=== PATIENT | male | born 1975 | race Caucasian/White ===

== ENCOUNTER 2016-09-02 16:12 | Emergency (ER) | payer OTHER ==
[2016-09-02 16:20] VITALS: BP 138/98
--- NOTE | 2016-09-02 16:32 | UC ---
Skin Complaint HPI - HPI Summary HPI Summary: Patient states he developed sudden severe pain in a hemorrhoid on Friday. Sitting and attempting to strain for a BM increases the pain. Denies fever like symptoms. - History of Current Complaint Chief Complaint: UCGeneralIllness Time Seen by Provider: 09/02/16 16:26 Stated Complaint: HEMORRHOIDS Hx Obtained From: Patient Onset/Duration: Sudden Onset Skin Exposure Onset/Duration: Days Ago - 2 days ago Onset Severity: Severe Current Severity: Severe Pain Intensity: 9 Pain Scale Used: 0-10 Numeric Location: Discrete Aggravating: Other - Sitting Alleviating: Nothing Associated Signs & Symptoms: Negative: Nausea, Vomiting, Fever, Chills, Abdominal Pain - Allergy/Home Medications Allergies/Adverse Reactions: Allergies Allergy/AdvReac Type Severity Reaction Status Date / Time No Known Allergies Allergy Verified 09/02/16 16:20 Review of Systems Constitutional: Negative Skin: Other - Hemorrhoids Eyes: Negative ENT: Negative Respiratory: Negative Cardiovascular: Negative Gastrointestinal: Negative Genitourinary: Negative Motor: Negative Neurovascular: Negative Musculoskeletal: Negative Neurological: Negative Psychological: Negative All Other Systems Reviewed And Are Negative: Yes PMH/Surg Hx/FS Hx/Imm Hx Previously Healthy: Yes Endocrine History Of: Denies: Diabetes, Thyroid Disease Cardiovascular History Of: Denies: Cardiac Disorders, Hypertension Respiratory History Of: Denies: COPD, Asthma GI/ History Of: Denies: Ulcer Neurological History Of: Denies: TIA, CVA, Seizures, Migraine Psychological History Of: Denies: Anxiety, Depression, Bipolar Disorder Cancer History Of: Denies: Lung Cancer - Surgical History Surgical History: Yes Surgery Procedure, Year, and Place: Bilateral inguinal hernia repair with mesh. - Family History Known Family History: Positive: Other - Mother Lung CA Father Brain CA 2001 - Social History Occupation: Employed Full-time Lives: With Family Alcohol Use: None Substance Use Type: None Smoking Status (MU): Never Smoked Tobacco Type: Smokeless Tobacco Amount Used/How Often: 1 can/week Length of Time of Smoking/Using Tobacco: 12 years Have You Smoked in the Last Year: No Cessation Counseling: Patient Advised to Stop Physical Exam Triage Information Reviewed: Yes Appearance: Pain Distress Vital Signs: Initial Vital Signs Temp 98.2 F 09/02/16 16:17 Pulse 87 09/02/16 16:17 Resp 16 09/02/16 16:17 BP 138/98 09/02/16 16:17 Vital Signs Reviewed: Yes Eye Exam: Normal Eyes: Positive: Conjunctiva Clear ENT: Positive: Normal ENT inspection, Hearing grossly normal, Pharynx normal, TMs normal Dental Exam: Normal Neck: Positive: Supple Respiratory: Positive: Chest non-tender, Lungs clear, Normal breath sounds Cardiovascular: Positive: RRR, No Murmur, Pulses Normal Abdomen Description: Positive: Nontender, No Organomegaly, Soft Bowel Sounds: Positive: Hypoactive Musculoskeletal Exam: Normal Musculoskeletal: Positive: Strength Intact, ROM Intact Neurological Exam: Normal Neurological: Positive: Alert, Muscle Tone Normal Psychological Exam: Normal Skin Exam: Other - External thrombosed hemorrhoid measuring less than 3 cm Re-Evaluation - Re-Evaluation First Eval Re-Evaluation Time: 17:08 Change: Improved Course/Dx - Diagnoses Provider Diagnoses: Hemorrhoids. Thrombosed hemorrhoid. Thrombosed hemorrhoid I&D Procedures - Incision and Drainage Site: anal hemorrhoid Anesthesia: Topical Instrument(s): Scalpel - Patient tolerated procedure well, moderate clot removed Discharge - Discharge Plan Condition: Stable Disposition: HOME Patient Education Materials: Hemorrhoids (ED) Referrals: Balbir Mead MD [Primary Care Provider] - Additional Instructions: Your hemorrhoid developed a clot which has made it painful. Will attempt to remove the clot
[2016-09-02] MEDS ORDERED: Lidocaine 4% TOPICAL* 50 ML TOP.SOLN TOPICAL ONE (16:42)
== END 2016-09-02 17:10 | disposition home or self-care (01) ==
LOC: UCEAST 16:12
DX: K64.5 Perianal venous thrombosis (principal); F17.220 Nicotine dependence, chewing tobacco, uncomplicated
CPT/HCPCS: 10140; 99212; G0463

== ENCOUNTER 2016-11-01 16:36 | Emergency (ER) | payer OTHER ==
[2016-11-01 18:17] VITALS: BP 112/69
[2016-11-01] MEDS ORDERED: Ondansetron ODT TAB* 4 MG PO ONE (18:48)
[2016-11-01] MEDS ORDERED: Ketorolac INJ* 60 MG/2 ML VIAL IM ONE (18:54)
--- NOTE | 2016-11-01 20:08 | UC ---
UC General HPI - HPI Summary HPI Summary: 11AM BEGAN TO FEEL CHILLS AND HAD NAUSEA AND VOMITING. NO ABDOMINAL PAIN. NO COUGH. NO SORE THROAT. ONLY MILD FEVER, NAUSEA, AND MUSCLE ACHES/CHILLS. - History of Current Complaint Chief Complaint: UCGeneralIllness Stated Complaint: FLU SYMPTOMS Time Seen by Provider: 11/01/16 18:13 Hx Obtained From: Patient, Family/Extension Course Counselor Onset/Duration: Sudden Onset, Lasting Hours, Still Present Onset Severity: Moderate Current Severity: Moderate Associated Signs & Symptoms: Positive: Fever, Nausea, Vomiting, Other - MUSCLE ACHES CHILLS - Allergy/Home Medications Allergies/Adverse Reactions: Allergies Allergy/AdvReac Type Severity Reaction Status Date / Time No Known Allergies Allergy Verified 09/02/16 16:20 Home Medications: Home Medications Fenofibrate(NF) 1 DAILY 11/01/16 [History] PMH/Surg Hx/FS Hx/Imm Hx Previously Healthy: Yes Endocrine History Of: Denies: Diabetes, Thyroid Disease Cardiovascular History Of: Denies: Cardiac Disorders, Hypertension Respiratory History Of: Denies: COPD, Asthma GI/ History Of: Denies: Ulcer Neurological History Of: Denies: TIA, CVA, Seizures, Migraine Psychological History Of: Denies: Anxiety, Depression, Bipolar Disorder Cancer History Of: Denies: Lung Cancer - Surgical History Surgical History: Yes Surgery Procedure, Year, and Place: Bilateral inguinal hernia repair with mesh. - Family History Known Family History: Positive: Other - Mother Lung CA Father Brain CA 2002 - Social History Occupation: Employed Full-time Lives: With Family Alcohol Use: Rare Substance Use Type: None Smoking Status (MU): Never Smoked Tobacco Type: Smokeless Tobacco Amount Used/How Often: 1 can/week Length of Time of Smoking/Using Tobacco: 12 years Have You Smoked in the Last Year: No Cessation Counseling: Patient Advised to Stop Review of Systems Constitutional: Fever, Chills Skin: Negative Eyes: Negative ENT: Negative Respiratory: Negative Cardiovascular: Negative Gastrointestinal: Vomiting Genitourinary: Negative Motor: Negative Neurovascular: Negative Musculoskeletal: Myalgia Neurological: Negative Psychological: Negative All Other Systems Reviewed And Are Negative: Yes Physical Exam Triage Information Reviewed: Yes Appearance: Well-Appearing, Well-Nourished, Ill-Appearing Vital Signs: Initial Vital Signs Temp 100.1 F 11/01/16 18:11 Pulse 94 11/01/16 18:11 Resp 16 11/01/16 18:11 BP 112/69 11/01/16 18:11 Pulse Ox 99 11/01/16 18:11 Vital Signs Reviewed: Yes Eye Exam: Normal ENT Exam: Normal ENT: Positive: Hearing grossly normal, Pharynx normal, TMs normal Dental Exam: Normal Neck exam: Normal Neck: Positive: Supple, Nontender, No Lymphadenopathy Respiratory Exam: Normal Respiratory: Positive: Chest non-tender, Lungs clear, Normal breath sounds, No respiratory distress, No accessory muscle use Cardiovascular Exam: Normal Cardiovascular: Positive: RRR, No Murmur, Pulses Normal, Brisk Capillary Refill Abdominal Exam: Normal Abdomen Description: Positive: Nontender, No Organomegaly Musculoskeletal Exam: Normal Musculoskeletal: Positive: Strength Intact, ROM Intact, No Edema Neurological Exam: Normal Psychological Exam: Normal Psychological: Positive: Normal Response To Family Skin Exam: Normal Course/Dx - Differential Dx - Multi-Symptom Differential Diagnoses: Other - INFLUENZA Provider Diagnoses: ACUTE NAUSEA AND VOMITING. VIRAL SYNDROME Discharge - Discharge Plan Condition: Stable Disposition: HOME Prescriptions: Ondansetron ODT TAB* [Zofran 4 MG Odt TAB*] 4 mg PO Q8H PRN #9 tab.odt PRN Reason: Vomiting Patient Education Materials: Acute Nausea and Vomiting (ED), Viral Syndrome (ED ) Referrals: Balbir Mead MD [Primary Care Provider] -
== END 2016-11-01 19:35 | disposition home or self-care (01) ==
LOC: UCEAST 16:36
DX: B34.9 Viral infection, unspecified (principal); R11.2 Nausea with vomiting, unspecified; F17.220 Nicotine dependence, chewing tobacco, uncomplicated
CPT/HCPCS: 87502; 96372; 99212; G0463; J1885

== ENCOUNTER → 2016-11-01 18:07 | Emergency (ER) | payer OTHER | END | disposition left against medical advice (07) | LOC: UCEAST 18:07 | DX: B34.9 Viral infection, unspecified (principal); R11.2 Nausea with vomiting, unspecified; F17.290 Nicotine dependence, other tobacco product, uncomplicated ==

== ENCOUNTER 2017-10-27 14:24 | Emergency (ER) | payer OTHER ==
[2017-10-27 14:50] VITALS: BP 140/95
--- NOTE | 2017-10-27 14:53 | UC ---
Upper Extremity HPI - HPI Summary HPI Summary: 42 y/o male presents to the urgent care c/o Left shoulder pain and left side neck pain for the past 10/22/2017. 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 Then he woke up w/ pain. Pain is 8/10 radiating to his left side of neck, specially w/ movement or lifting. Decrease ROM of left shoulder due to pain. He has taking Ibuprofen PO to alleviate symptoms. Pt can't recall any injury to his left shoulder or neck. and denies numbness or tingling sensation over the left arm, SOB, chest pain, abdominal pain, N/V/D. - History of Current Complaint Chief Complaint: UCUpperExtremity Stated Complaint: NECK/LEFT SHOULDER PAIN 4 DAYS Time Seen by Provider: 10/27/17 14:46 Hx Obtained From: Patient Onset/Duration: Gradual Onset, Lasting Days - 6 days, Still Present, Worse Since - 2 days ago Severity Initially: Mild Severity Currently: Moderate Pain Intensity: 8 Pain Scale Used: 0-10 Numeric Location Of Pain: Is Discrete @ - left shoulder, Radiates To - left side of neck Aggravating Factor(s): Movement, Lifting, Abduction Alleviating Factor(s): OTC Meds Associated Signs And Symptoms: Positive: Negative. Negative: Swelling, Redness , Fever, Numbness/Tingling Related History: Dominant Hand Right - Risk Factors Non-Orthopedic Risk Factor: Negative DVT Risk Factors: Negative Septic Arthritis Risk Factor: Negative - Allergies/Home Medications Allergies/Adverse Reactions: Allergies Allergy/AdvReac Type Severity Reaction Status Date / Time No Known Allergies Allergy Verified 10/27/17 14:51 PMH/Surg Hx/FS Hx/Imm Hx Previously Healthy: Yes - Pt denies PMHX - Surgical History Surgical History: Yes Surgery Procedure, Year, and Place: Bilateral inguinal hernia repair with mesh. - Family History Family History: Mother Lung CA Father Brain CA 2001 - Social History Occupation: Employed Full-time Lives: With Family Alcohol Use: Rare Substance Use Type: None Smoking Status (MU): Current Every Day Smoker Type: Smokeless Tobacco Amount Used/How Often: 1 can/week Length of Time of Smoking/Using Tobacco: since age 27 Have You Smoked in the Last Year: No Review of Systems Constitutional: Negative Skin: Negative Eyes: Negative ENT: Negative Respiratory: Negative Cardiovascular: Negative Gastrointestinal: Negative Genitourinary: Negative Motor: Decreased ROM - left shoulder Musculoskeletal: Decreased ROM - left shoulder, Other: - left shoulder pain and left side neck pain Neurological: Negative Psychological: Negative Is Patient Immunocompromised?: No All Other Systems Reviewed And Are Negative: Yes Physical Exam - Summary Physical Exam Summary: Vital Signs Reviewed: Yes General: well developed, well nourished male sitting in the examining table w/o any apparent distress, Eyes: Positive: Conjunctiva Clear - PERRLA, EOMI, fundi grossly normal ENT: Positive: Normal ENT inspection, Hearing grossly normal, Pharynx normal, TMs normal Neck: Positive: Supple, Nontender, No Lymphadenopathy Respiratory: Positive: Chest non-tender, Lungs clear, Normal breath sounds, No respiratory distress Cardiovascular: Positive: RRR, No Murmur, Pulses Normal, Brisk Capillary Refill Abdomen Description: Positive: Nontender, No Organomegaly, Soft. Negative: CVA Tenderness (R), CVA Tenderness (L) Bowel Sounds: Positive: Present Musculoskeletal: Positive: Strength Intact, Other: - RT shoulder: The L shoulder is without obvious asymmetry or deformity when compared to the R shoulder. No surface trauma, ecchymosis, crepitus. No bony deformity or prominence of humeral head. No erythema, warmth. tender to palpation over the clavicle,scapula. and over Acromioclavicular joint w/o any swelling or erythema , no humeral head tenderness, NT to palpation of the bicipital groove . Tenderness to palpation over the left trapezius muscle. NT to sternocleidomastoid, pectoralis, or over biceps/triceps, deltoid, . Limited ROM due to pain. "empty can and drop arm test unable to perform due to pain. Decrease ROM of neck on lateral bending due to pain s/ mild muscle spasm. No axillary tenderness or lymphadenopathy. Normal sensation over the deltoid and fingers. Distal motor and neurovascular status is intact. Neurological Exam: Normal Psychological Exam: Normal Skin Exam: Normal Triage Information Reviewed: Yes Vital Signs: Initial Vital Signs Temp 98.8 F 10/27/17 14:39 Pulse 93 10/27/17 14:39 Resp 16 10/27/17 14:39 BP 140/95 10/27/17 14:39 Pulse Ox 97 10/27/17 14:39 Upper Extremity Course/Dx - Course Course Of Treatment: 42 y/o male presents to the urgent care c/o Left shoulder pain and left side neck pain for the past 10/22/2017. 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 Then he woke up w/ pain. Pain is 8/10 radiating to his left side of neck, specially w/ movement or lifting. Decrease ROM of left shoulder due to pain. He has taking Ibuprofen PO to alleviate symptoms. Pt can't recall any injury to his left shoulder or neck. and denies numbness or tingling sensation over the left arm, SOB, chest pain, abdominal pain, N/V/D. Hx obtained. Pt given Naproxen at the clinic for pain. Given by nurse. Pt tolerated well medication and felt better. LF shoulder X- ray ordered: Impression: Negative for fracture or swellling. No acute osseous injury observed. Pt's Rx Naproxen PO, Flexeril PO to alleviate neck spasm. Shoulder immobilized with a shoulder sling for 2-3 days. Advised to f/u with Orthopedic referral if not improvement of symptoms in 1 week. Pt's BP is elevated today advised to decrease salt in diet, monitor BP and f/u with PCP for further management. Pt understood and agreed w/ plan of care. - Differential Dx/Diagnosis Differential Diagnosis/HQI/PQRI: Arthritis, Fracture (Closed), Strain, Sprain, Other - tendonitis Provider Diagnoses: 1- Acute left shoulder pain. 2- spasmodic torticollis. 3- Elevated BP w/o Hx of HTN Discharge - Discharge Plan Condition: Stable Disposition: HOME Prescriptions: Cyclobenzaprine TAB* [Flexeril 10 MG TAB*] 10 mg PO TID PRN #15 tab PRN Reason: Spasms - Neck Naproxen Sodium [Naproxen Sodium 500 MG TAB] 500 mg PO BID #30 tab Patient Education Materials: Spasmodic Torticollis (ED), Shoulder Sprain (ED), Low-Sodium Diet (ED) Referrals: Balbir Mead MD [Primary Care Provider] - 1 Week Jennifer Peterson MD [Medical Doctor] - 1 Week Additional Instructions: 1-Please Naproxen PO as directed to alleviate pain and swelling. 2- Take Flexeril PO for your neck spasm. Avoid driving if it causes too much drowsiness. 3-Please apply ice, keep your shoulder immobilized with the shoulder sling for 3 -4 days and then resume movement slowly 4- Please f/u with Orthopedic DR Peterson or your PCP in 1 week is not improvement of symptoms for further evaluation and treatment. 5-Your BP is elevated today. please decrease salt in your diet, monitor BP and if it continues to be elevated please f/u with your PCP for further management
[2017-10-27] MEDS ORDERED: Naproxen TAB* 250 MG PO ONE (15:02)
--- NOTE | 2017-10-27 15:55 | RAD ---
Indication: 1 week LEFT shoulder pain and LEFT side neck pain without known injury. Comparison: No relevant prior exams available on the [facility] [place] PACS for comparison. Technique: Internal rotation AP, external rotation Grashey, scapular Y, axillary views LEFT shoulder Report: Normal acromioclavicular and glenohumeral joint alignment. Negative for fracture. No appreciable acromioclavicular or glenohumeral joint arthropathic change. Negative for calcific tendinopathy or abnormal soft tissue contour. IMPRESSION: Negative radiographic exam of the LEFT shoulder.
== END 2017-10-27 16:19 | disposition home or self-care (01) ==
LOC: UCCORT 14:24
DX: M25.512 Pain in left shoulder (principal); M43.6 Torticollis; X50.0XXA Overexertion from strenuous movement or load, initial encounter; X50.3XXA Overexertion from repetitive movements, initial encounter; Y93.89 Activity, other specified; Y92.9 Unspecified place or not applicable; Y99.0 Civilian activity done for income or pay; R03.0 Elevated blood-pressure reading, without diagnosis of hypertension; F17.220 Nicotine dependence, chewing tobacco, uncomplicated
CPT/HCPCS: 99213; A9270-GY; G0463

== ENCOUNTER 2018-02-07 08:12 | Emergency (ER) | payer OTHER ==
[2018-02-07 08:19] VITALS: BP 137/88
--- NOTE | 2018-02-07 10:39 | UC ---
Pamela Coyne Rebecca, scribed for Alecia Anne DO on 02/07/18 at 0930 . Respiratory Complaint HPI - HPI Summary HPI Summary: Pt is a 42 y/o M who presents to [facility] c/o multiple respiratory symptoms for 1 week, beginning last weekend and gradually worsening since onset. Reports a productive cough, bringing up green sputum, and pleuritic chest pain with breathing and cough. 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 Additionally notes rhinorrhea, sinus congestion, sore throat and diarrhea described as watery. Denies ear pain, N/V, abdominal pain, ALEXANDER, rash, and dysuria. Has been unable to eat, but has been staying hydrated. 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 - Family History Known Family History: Positive: Other - Mother Lung CA Father Brain CA 2001 Family History: Mother Lung CA Father Brain CA 2001 - Social History Occupation: Employed Full-time - Owns a [employer] business Alcohol Use: Occasionally Substance Use Type: None Smoking Status (MU): Current Every Day Smoker Type: Smokeless Tobacco Amount Used/How Often: 1 can/week Length of Time of Smoking/Using Tobacco: since age 27 Have You Smoked in the Last Year: No Review of Systems Constitutional: Negative Skin: Negative Eyes: Negative ENT: Sore Throat, Nasal Discharge, Sinus Congestion Respiratory: Cough Cardiovascular: Other - Pleuritic chest pain (w/ breathing and cough) Gastrointestinal: Diarrhea Genitourinary: Negative Motor: Negative Neurovascular: Negative Musculoskeletal: Negative Neurological: Negative Psychological: Negative All Other Systems Reviewed And Are Negative: Yes - Comments Additional Review of Systems Comments: NEGATIVE: Ear pain, N/V, abdominal pain, ALEXANDER, rash, and dysuria Physical Exam - Summary Physical Exam Summary: Appearance: Well-Appearing, No Pain Distress, Well-Nourished Eyes: conjunctiva clear, no discharge ENT: Sinus congestion, nasal drainage, serous fluid behind an otherwise normal TM on the left, negative tonsillar swelling, negative tonsillar exudate, negative trismus. Neck: Normal, Supple Respiratory/Lung Sounds: Lungs clear, Prolonged expiration on the bilateral bases, No respiratory distress, No accessory muscle use Cardiovascular: RRR, No murmur Musculoskeletal: Normal Neurological: Alert, muscle tone normal Psychiatric:Normal, age appropriate behavior Skin: Normal, Warm, Dry, Normal color Triage Information Reviewed: Yes Vital Signs: Initial Vital Signs Temp 98.5 F 02/07/18 08:17 Pulse 67 02/07/18 08:17 Resp 18 02/07/18 08:17 BP 137/88 02/07/18 08:17 Pulse Ox 97 02/07/18 08:17 Vital Signs Reviewed: Yes ENT: Positive: Nasal congestion, Nasal drainage, Sinus tenderness UC Diagnostic Evaluation - Laboratory O2 Sat by Pulse Oximetry: 97 Respiratory Course/Dx - Course Course Of Treatment: Pt is a 42 y/o M who presents to [facility] c/o productive cough, bringing up green sputum, and pleuritic chest pain with breathing and cough for 1 week with rhinorrhea, sinus congestion, sore throat and diarrhea described as watery. Denies ear pain, N/V, abdominal pain, ALEXANDER, rash, and dysuria. Has been unable to eat, but has been staying hydrated. Pt will be D/C to home with Dx of sinusitis, bronchospasm, and diarrhea with Rx for Tylenol/ Codeine, Ventolin Inhaler, Z-Cisco, Tessalon, and Mucinex. Medications reviewed. - Differential Dx/Diagnosis Provider Diagnoses: Sinusitis, bronchospasm, diarrhea Discharge - Sign-Out/Discharge Documenting (check all that apply): Discharge/Admit/Transfer - Discharge - Discharge Plan Condition: Stable Disposition: HOME Prescriptions: Acetaminop/Codeine 30 MG TAB* [Tylenol/Codeine 30 MG TAB*] 1 tab PO BEDTIME PRN #7 tab MDD 1 tab PRN Reason: Cough Albuterol HFA INHALER* [Ventolin HFA Inhaler*] 2 puff INH Q4H PRN #1 mdi PRN Reason: Sob/Wheezing Azithromycin TAB* [Zithromax TAB (Z-CISCO) 250 mg #6 tabs] 0 mg PO .SEE INSTRUCTIONS #6 tab Benzonatate CAP* [Tessalon 100 MG CAP*] 100 mg PO TID #30 cap guaiFENesin ER TAB [Mucinex*] 600 mg PO BID PRN #1 box PRN Reason: Cough Patient Education Materials: Sinusitis (ED), Bronchospasm (ED), Nutrition Tips for Relief of Diarrhea (ED) Referrals: Balbir Mead MD [Primary Care Provider] - If Needed Additional Instructions: TRY USING THE NETTI POT IN THE MORNINGS DISCUSSED. YOU MUST ALWAYS USE CLEAN WATER. REMEMBER, POSTURE IS AN IMPORTANT FACTOR IN SINUS DRAINAGE. MOVE YOUR NECK, BREATHE. INHALED BRONCHODILATORS: You have received a prescription for an inhaled bronchodilator -- a medication which stimulates the airways in the lung to dilate. This improves the flow of air in asthma, bronchitis, and emphysema. These medicines have some similarity to adrenaline, and can cause similar side effects: shakiness, racing heart, and a sense of nervousness. These side effects decrease with time. Contact your doctor if these side effects are severe. Do not over-use the medicine. Too-frequent use of the inhaler may make it ineffective. Call your doctor if the inhaler is not controlling your symptoms at the prescribed doses. COUGH-SUPPRESSANT & EXPECTORANT MEDICATION: You are to use a cough medication as needed for relief of symptoms. This medicine is a combination of an expectorant (to make the mucous thinner and more easily "coughed up") and a cough suppressant (to reduce the frequency of coughing). The cough-suppressant medicine is related to narcotics. You may experience mild nausea and sleepiness. Some patients who are very sensitive to narcotics may have stomach pain from this medicine. Taking the medicine with food reduces these side effects. Do not drive or work with machinery until you know how this medicine affects you. The expectorant should have no side effects. Iodine-containing expectorants (such as organidin) should not be taken by persons with active thyroid disease unless approved by your doctor. Call the doctor if you develop shortness of breath, hives, rash, itching, lightheadedness, or severe nausea and vomiting. EXPECTORANT MEDICATION: WE SENT IN A SCRIPT FOR MUCINEX SO THAT IT IS EASIER FOR YOU TO PICK THE RIGHT MED AT THE PHARMACY. HOWEVER, YOU CAN ALSO GO TO THE [employer] [facility] AND BUY PLAIN GUAIFENESIN WITHOU BINDERS OR FILLERS. An expectorant medicine has been prescribed. This type of drug makes mucous thinner, helping the sinuses, nose, and bronchial tubes to remain free of pus and mucous. Expectorants make a cough less severe and more comfortable, and help infected sinuses drain. In general, antihistamines defeat the purpose of the expectorant by making mucous thicker. They should be avoided unless specifically recommended by your physician. TESSALON PERLES: You have received a prescription for Tessalon Perles (benzonatate). This is a non-narcotic medicine for relief of cough. It usually works in about 15- 20 minutes and lasts around four hours. Tessalon Perles should be swallowed. They should not be chewed or dissolved in the mouth (this can produce temporary numbing of the mouth and choking can occur). If you develop any adverse effects such as wheezing, shortness of breath, hives, rash, itching, or lightheadedness, please return at once. ANTIBIOTICS ARE NOT CURRENTLY INDICATED FOR YOUR CONDITION. HOWEVER, IF YOUR SYMPTOMS WORSEN OR PERSIST FOR OVER THE NEXT 4-5 DAYS, YOU CAN TAKE THE FOLLOWING MEDICATION: AZITHROMYCIN: Azithromycin (Zithromax) is a broad spectrum antibiotic in the same class as erythromycin. It can treat a variety of bacterial infections, but is most frequently used for respiratory infections. Azithromycin is extremely long-lasting. It accumulates in body tissues and continues to kill bacteria for many days. In order to improve absorption, Azithromycin should be taken at least one hour before or two hours after a meal. It does not have the same strong tendency to upset the stomach as erythromycin and is usually very well tolerated. Patients who have had a rash or other true allergic reactions to erythromycin should not take this medication. Call if you develop gastrointestinal distress, severe diarrhea, rash, hives, itching, or shortness of breath. ANYTIME YOU TAKE AN ANTIBIOTIC, IT IS IMPORTANT TO REPLENISH THE BODY'S SUPPLY OF "GOOD BACTERIA." YOU CAN GET GOOD BACTERIA FROM HIGH QUALITY CULTURED FOODS SUCH LOCAL YOGURT, SOUR KRAUT, SIMEON ELSY, NATURALLY FERMENTED PICKLES AND PROBIOTIC DRINKS. YOU CAN ALSO GET GOOD BACTERIA FROM A PROBIOTIC SUPPLEMENT. - Billing Disposition and Condition Condition: STABLE Disposition: Home The documentation as recorded by the Pamela yin Rebecca accurately reflects the service I personally performed and the decisions made by me, Alecia Anne DO.
== END 2018-02-07 09:54 | disposition home or self-care (01) ==
LOC: UCEAST 08:12
DX: J98.01 Acute bronchospasm (principal); J32.9 Chronic sinusitis, unspecified; R19.7 Diarrhea, unspecified; F17.200 Nicotine dependence, unspecified, uncomplicated
CPT/HCPCS: 99212; G0463

== ENCOUNTER 2019-01-21 12:38 | Emergency (ER) | payer OTHER ==
[2019-01-21 12:48] VITALS: BP 134/90
[2019-01-21] MEDS ORDERED: Albuterol/Ipratropium NEB.SOL* Albuterol 2.5 MG/Ipratropium 0.5 MG 3 ML INH ONE (13:04)
--- NOTE | 2019-01-21 14:05 | ED ---
Respiratory - HPI Summary HPI Summary: Mr. Muhammad started to get a sore throat yesterday. He didn't feel better at all. He woke up in the middle of the night with severe chest pain and shortness of breath. He was also coughing nonproductively. He took some NyQuil and other OTC meds and eventually fell back asleep. When he woke up this morning he continued to feel short of breath although the chest pain was gone. He comes in saying he has a mild sore throat but otherwise just feels awful. The chest pain was retrosternal and described as sharp. He does not recall any exacerbating or relieving factors or other associated symptoms. - History of Current Complaint Chief Complaint: UCRespiratory Stated Complaint: COUGH/SOB Time Seen by Provider: 01/21/19 12:49 Hx Obtained From: Patient, Family/Flight Dynamicist Onset/Duration: Sudden Onset Timing: Constant Initial Severity: Severe Current Severity: Moderate Pain Intensity: 99 Character: Cough (Nonproductive) Sputum Amount: None Aggravating Factor(s): Nothing Alleviating Factor(s): Nothing Associated Signs and Symptoms: Chest Pain - Sore Throat - Allergy/Home Medications Allergies/Adverse Reactions: Allergies Allergy/AdvReac Type Severity Reaction Status Date / Time No Known Allergies Allergy Verified 01/21/19 12:48 PMH/Surg Hx/FS Hx/Imm Hx Previously Healthy: Yes Endocrine/Hematology History: Denies: Hx Diabetes, Hx Thyroid Disease Cardiovascular History: Denies: Hx Hypertension Respiratory History: Denies: Hx Asthma, Hx Chronic Obstructive Pulmonary Disease (COPD), Hx Lung Cancer GI History: Denies: Hx Ulcer Neurological History: Denies: Hx Migraine, Hx Seizures, Hx Transient Ischemic Attacks (TIA) Psychiatric History: Denies: Hx Anxiety, Hx Depression, Hx Bipolar Disorder - Surgical History Surgery Procedure, Year, and Place: Bilateral inguinal hernia repair with mesh. Infectious Disease History: No Infectious Disease History: Denies: Hx Hepatitis, Hx Human Immunodeficiency Virus (HIV), History Other Infectious Disease, Traveled Outside the [place] in Last 30 Days - Family History Known Family History: Positive: Other - Mother Lung CA Father Brain CA 2001 Family History: Mother Lung CA Father Brain CA 2001 - Social History Alcohol Use: Occasionally Substance Use Type: Reports: None Hx Tobacco Use: No Smoking Status (MU): Former Smoker Type: Smokeless Tobacco Amount Used/How Often: 1 can/week Length of Time of Smoking/Using Tobacco: since age 27 Have You Smoked in the Last Year: No Review of Systems Constitutional: Negative Positive: Sore Throat Positive: Chest Pain Positive: Shortness Of Breath All Other Systems Reviewed And Are Negative: Yes Physical Exam - Summary Physical Exam Summary: Mr. Muhammad presented feeling "awful". He complained of shortness of breat especially if he moved around. He was nontoxic in appearance with stable vital signs. His lungs were clear but I gave him a DuoNeb thinking this may be related to some bronchospasm. Ventolin neb did not help him at all and a chest x-ray was unremarkable. I still think this is likely a viral infection however he had significant chest pain still has shortness of breath and I cannot find anything on my clinical exam or testing. An EKG here showed no acute ischemic changes and normal sinus rhythm. I recommended that he go to the emergency department at this time and his is driving him there. Vital Signs On Initial Exam: Initial Vitals Temp Pulse Resp BP Pulse Ox 98.6 F 84 17 134/90 98 01/21/19 12:45 01/21/19 12:45 01/21/19 12:45 01/21/19 12:45 01/21/19 12:45 Diagnostics - Vital Signs Vital Signs Temp Pulse Resp BP Pulse Ox 01/21/19 12:45 98.6 F 84 17 134/90 98 - Laboratory Lab Statement: Any lab studies that have been ordered have been reviewed, and results considered in the medical decision making process. Disposition - Diagnoses Provider Diagnoses: Chest pain, Shortness of breath Discharge - Sign-Out/Discharge Documenting (check all that apply): Patient Departure All imaging exams completed and their final reports reviewed: Yes - Discharge Plan Condition: Stable Disposition: HOME-RECOMMEND TO ED Patient Education Materials: Chest Pain (ED) Referrals: Balbir Mead MD [Primary Care Provider] - Additional Instructions: Please go to the emergency department at this time for further evaluation for chest pain and shortness of breath. - Billing Disposition and Condition Condition: STABLE Disposition: Home-Recommend to ED
== END 2019-01-21 14:14 | disposition home health service (06) ==
LOC: UCEAST 12:38
DX: R07.9 Chest pain, unspecified (principal); R06.02 Shortness of breath; Z87.891 Personal history of nicotine dependence
CPT/HCPCS: 71046; 93005; 99212; A9270-GY; G0463

== ENCOUNTER → 2019-01-21 14:26 | Emergency (ER) | payer OTHER ==
[~2019-01-21 14:26] MED LIST: Ibuprofen TAB* 600 MG PO ONE
[2019-01-21 14:32] VITALS: BP 162/99
--- NOTE | 2019-01-21 15:17 | ED ---
HPI Chest Pain - HPI Summary HPI Summary: Pt. is a 43 y.o male who presents to the ER from after an episode of CP through the night. Pt. notes he has been having a dry cough, sore throat, nasal congestion/sinus, and post nasal drip that started last night. Pt. states he woke up last night with substernal CP and SOB. Associated sxs of diaphoresis. Pt. states sxs lasted a few minutes and then went back to sleep. Pt. states cp has been intermittent throughout the day when he coughs. Pt. denies hx of HTN, HDL, strong family hx of CAD. Pt. notes he chews tobacco. Sxs are moderate in severity. No current modifying factors. - History of Current Complaint Chief Complaint: EDChestPainROMI Time Seen by Provider: 01/21/19 15:16 Hx Obtained From: Patient Pain Intensity: 5 - Allergy/Home Medications Allergies/Adverse Reactions: Allergies Allergy/AdvReac Type Severity Reaction Status Date / Time No Known Allergies Allergy Verified 01/21/19 14:30 PMH/Surg Hx/FS Hx/Imm Hx Endocrine/Hematology History: Denies: Hx Diabetes, Hx Thyroid Disease Cardiovascular History: Denies: Hx Hypertension Respiratory History: Denies: Hx Asthma, Hx Chronic Obstructive Pulmonary Disease (COPD), Hx Lung Cancer GI History: Denies: Hx Ulcer Neurological History: Denies: Hx Migraine, Hx Seizures, Hx Transient Ischemic Attacks (TIA) Psychiatric History: Denies: Hx Anxiety, Hx Depression, Hx Bipolar Disorder - Surgical History Surgery Procedure, Year, and Place: Bilateral inguinal hernia repair with mesh. Infectious Disease History: No Infectious Disease History: Denies: Hx Hepatitis, Hx Human Immunodeficiency Virus (HIV), History Other Infectious Disease, Traveled Outside the [place] in Last 30 Days - Family History Known Family History: Positive: Other - Mother Lung CA Father Brain CA 2001 Family History: Mother Lung CA Father Brain CA 2001 - Social History Alcohol Use: Occasionally Substance Use Type: Reports: None Hx Tobacco Use: No Smoking Status (MU): Former Smoker Type: Smokeless Tobacco Amount Used/How Often: 1 can/week Length of Time of Smoking/Using Tobacco: since age 27 Have You Smoked in the Last Year: No Review of Systems Constitutional: Negative Negative: Fever Positive: Sore Throat, Nasal Discharge Positive: Chest Pain. Negative: Palpitations Positive: Shortness Of Breath, Cough Gastrointestinal: Negative Genitourinary: Negative Musculoskeletal: Negative Skin: Negative Positive: Headache All Other Systems Reviewed And Are Negative: Yes Physical Exam Triage Information Reviewed: Yes Vital Signs On Initial Exam: Initial Vitals Temp Pulse Resp BP Pulse Ox 99.7 F 89 20 162/99 94 01/21/19 14:29 01/21/19 14:29 01/21/19 14:29 01/21/19 14:29 01/21/19 14:29 Vital Signs Reviewed: Yes Appearance: Positive: Well-Appearing - Pt. sitting up in bed in NAD> Family present. Skin: Positive: Warm, Dry Head/Face: Positive: Normal Head/Face Inspection Eyes: Positive: Normal, EOMI, SHAHEED ENT: Positive: Other - Nasal congestion. Post nasal drip present. No tonsilar edema or excudates. Neck: Positive: Supple, Nontender. Negative: Nuchal Rigidity Respiratory/Lung Sounds: Positive: Clear to Auscultation, Breath Sounds Present. Negative: Rales, Rhonchi, Wheezes Cardiovascular: Positive: Normal, RRR Abdomen Description: Positive: Nontender, Soft Neurological: Positive: Normal, CN Intact II-III Psychiatric: Positive: Affect/Mood Appropriate Diagnostics - Vital Signs Vital Signs Temp Pulse Resp BP Pulse Ox 01/21/19 14:29 99.7 F 89 20 162/99 94 - Laboratory Result Diagrams: 01/21/19 15:18 01/21/19 15:18 Lab Statement: Any lab studies that have been ordered have been reviewed, and results considered in the medical decision making process. Chest Pain Course/Dx - Course Course Of Treatment: Pt. presenting after an episode of CP with URI symptoms. He is afebrile. BP slightly elevated. Pt. current not having CP. ECG done at 1434 shows a sinus rhythm of 82bpm, normal axis, no ST elevation or depression. CXR obtained at and negative for acute findings per radiology. Blood work unremarkable other than mildly elevated creatine. Negative trop and ddimer. HEART score is 0. Suspect pt.'s URI sxs are allergy related. Results discussed. Rx for matilda D provided. Advised pt. he needs to f.u with PCP for recheck BP and possible further outpt. evaluation of CP. Pt. to return to ER for any new or worsening sxs. Pt. understands and agrees with plan. - Chest Pain Differential Diagnosis/HQI/PQRI: Acute MN, Chest Wall, GI Disease, Lower Respiratory Infection - Diagnoses Provider Diagnoses: Atypical chest pain, Allergic rhinitis Discharge - Sign-Out/Discharge Documenting (check all that apply): Patient Departure Patient Received Moderate/Deep Sedation with Procedure: No - Discharge Plan Condition: Good Disposition: HOME Prescriptions: Fexofenadine/Pseudoephedrine [Matilda-D 24 Hour Tablet] 1 each PO DAILY #30 tab.er.24h Patient Education Materials: Chest Pain (ED), Allergic Rhinitis (ED) Referrals: Balbir Mead MD [Primary Care Provider] - Additional Instructions: Call PCP for a close follow up appointment for further evaluation of chest pain Recommend an over the counter antihistamine with decongestant such as Zyrtec D or Matilda D Return to ER if symptoms change or worsen - Billing Disposition and Condition Condition: GOOD Disposition: Home
[2019-01-21 15:27] LABS: ABS Lymphocytes 0.5 10^3/ul (1.0-4.8); ABS Monocytes 0.7 10^3/ul (0-0.8); ABS Neutrophils 4.1 10^3/ul (1.5-7.7); Eosinophil % 0.9 %; Hematocrit 48 % (42-52); Hemoglobin 16.6 g/dL (14.0-18.0); Lymphocyte % 9.1 %; Mean Corpuscular HGB Conc 34 g/dL (31-36); Mean Corpuscular Hemoglobin 28 pg (27-31); Mean Corpuscular Volume 81 fL (80-94); Mean Platelet Volume 8.7 fL (7.4-10.4); Nucleated Red Blood Cells % 0.5; Platelet Count 140 10^3/uL (150-450); Red Blood Count 6.02 10^6 /uL (4.18-5.48); Red Cell Distribution Width 13 % (10-15); White Blood Count 5.3 10^3/uL (3.5-10.8)
[2019-01-21 15:37] LABS: INR 1.05 (0.82-1.09)
[2019-01-21 15:44] LABS: Albumin 4.7 g/dL (3.2-5.2); Albumin/Globulin Ratio 1.5 (1-3); BUN/Creatinine Ratio 20.7 (8-20); Calcium 9.6 mg/dL (8.6-10.3); EGFR Non-African American 66.1 (>60); Globulin 3.2 g/dL (2-4); Potassium 4.7 mmol/L (3.5-5.0); Total Bilirubin 0.8 mg/dL (0.2-1.0); Total Protein 7.9 g/dL (6.4-8.9)
== END | disposition home or self-care (01) ==
LOC: ED 14:26
DX: R07.89 Other chest pain (principal); J30.9 Allergic rhinitis, unspecified; R06.02 Shortness of breath; F17.220 Nicotine dependence, chewing tobacco, uncomplicated
CPT/HCPCS: 36415; 80053; 84484; 85025; 85379; 85610; 93005; 99283; A9270-GY